=== PATIENT | female | born 1965 | race Caucasian/White ===

== ENCOUNTER 2017-03-02 07:15 | Day surgery (SDC) | payer OTHER ==
[~2017-03-02] VITALS: Ht 160 cm; Wt 101.4 kg
[~2017-03-02 07:15] MED LIST: CLINDAMYCIN 600 MG/D5% WATER 50 ML IV ONE; CeFAZolin 2 GM/DEXTROSE 50 ML IV ONE; RINGERS SOLUTION,LACTATED 1,000 ML IV ONE
[2017-03-02] MEDS ORDERED: LIDOCAINE HCL/PF 2% 5 ML VIAL IM ONE (07:16)
[2017-03-02] MEDS ORDERED: FentaNYL CITRATE-PF 100 MCG/2 ML VIAL IVP ONE (07:16)
[2017-03-02] MEDS ORDERED: KETAMINE HCL 50 MG/ML 10 ML VIAL IVP ONE (07:16)
[2017-03-02] MEDS ORDERED: PROPOFOL 1% 20 ML VIAL IVP ONE (07:16)
[2017-03-02] MEDS ORDERED: MIDAZOLAM HCL 2 MG/2 ML VIAL IVP ONE (07:16)
[2017-03-02] MEDS ORDERED: CLIN300C3 PO (07:42)
[2017-03-02] MEDS ORDERED: HYDR25TA PO (07:42)
[2017-03-02] MEDS ORDERED: LIDOCAINE HCL 2%/EPI 1:200,000/PF 20 ML VIAL ONE (08:08)
[2017-03-02] MEDS ORDERED: BUPIVACAINE HCL/PF 0.5% 30 ML VIAL ONE (08:08)
[2017-03-02] MEDS ORDERED: ACETAMINOPHEN 500 MG TABLET PO PRN (08:30)
[2017-03-02] MEDS ORDERED: IBUPROFEN 600 MG TABLET PO PRN (08:30)
[2017-03-02] MEDS ORDERED: MEPERIDINE-PF 25 MG/ML SYRINGE IVP PRN (09:30)
[2017-03-02] MEDS ORDERED: FentaNYL CITRATE-PF 100 MCG/2 ML VIAL IVP PRN (09:30)
[2017-03-02] MEDS ORDERED: HYDROmorphone 2 MG/ML SYRINGE IVP PRN (09:30)
[2017-03-02] MEDS ORDERED: OXYGEN THERAPY IH SCH (20:00)
== END 2017-03-02 10:05 | disposition home or self-care (01) ==
LOC: SURGERY 07:15
PROVIDERS: ATTEND Surgery
DX: M79.9 Soft tissue disorder, unspecified (principal); I10 Essential (primary) hypertension; E66.01 Morbid (severe) obesity due to excess calories; Z88.0 Allergy status to penicillin; Z98.890 Other specified postprocedural states; Z79.899 Other long term (current) drug therapy; Z68.39 Body mass index [BMI] 39.0-39.9, adult
CPT/HCPCS: 21555; 88304; J0690; J2250; J2704; J3010; J3490 ×4; J7120